=== PATIENT | male | born 1980 ===

== ENCOUNTER 2024-07-07 06:29 | Day surgery (SDC) | payer BC ==
[2024-07-07] MEDS ORDERED: Midazolam 1 MG/ML 2 ML SDV IV ONE (06:30)
[2024-07-07] MEDS ORDERED: fentaNYL 100 MCG/2 ML SDV IV ONE (06:30)
[2024-07-07] MEDS ORDERED: Midazolam 1 MG/ML 2 ML SDV ONE (06:54)
[2024-07-07] MEDS ORDERED: fentaNYL 100 MCG/2 ML SDV ONE (06:54)
[2024-07-07] MEDS: Dextrose 5%-0.45% NaCl 1,000 ML IV SCH (07:39)
[2024-07-07] MEDS: fentaNYL 100 MCG/2 ML SDV IV ONE ×2 (07:55)
[2024-07-07] MEDS: Midazolam 1 MG/ML 2 ML SDV IV ONE ×6 (07:55→08:01)
== END 2024-07-07 09:19 | disposition home or self-care (01) ==
LOC: DL.ENDO 06:29
PROVIDERS: ATTEND Internal Medicine Gastroenterology
DX: Z12.11 Encounter for screening for malignant neoplasm of colon (principal)
CPT/HCPCS: 45378; J2250; J3010; J7799